=== PATIENT | male | born 1990 | race Hispanic/Latino ===

== ENCOUNTER 2017-10-17 06:27 | Emergency (ER) | payer BC ==
[2017-10-17 06:52] VITALS: RESP 18; TEMP 97.8; O2SAT 98
--- NOTE | 2017-10-17 07:29 | ED PDOC ---
HPI: Psych/Substance Abuse Time Seen by Provider: 10/17/17 07:00 Chief Complaint (Nursing): Alcohol Ingestion Chief Complaint (Provider): alcohol use ED Caveat: Uncooperative History Per: Patient, EMS History/Exam Limitations: intoxication Current Symptoms Are (Timing): Still Present Severity: Moderate Involuntary Hold By: Emergency Physician Additional Complaint(s): 26yo male states "passed out" on sidewalk while awaiting an Uber early this morning. No reports trauma. Denies pain or injury. Initially uncooperative but able to be redirected. Past Medical History Reviewed: Historical Data, Nursing Documentation, Vital Signs Vital Signs: Last Vital Signs Temp 97.8 F 10/17/17 06:50 Pulse 123 H 10/17/17 06:50 Resp 18 10/17/17 06:50 BP Pulse Ox 98 10/17/17 06:50 - Medical History PMH: No Chronic Diseases - Family History Family History: States: Unknown Family Hx - Living Arrangements Living Arrangements: Other - Social History Alcohol: Occasional Drugs: Denies - Allergies Allergies/Adverse Reactions: Allergies Allergy/AdvReac Type Severity Reaction Status Date / Time Penicillins Allergy ANAPHYLAXIS Verified 10/17/17 06:53 Review of Systems Eyes: Negative for: Vision Change Cardiovascular: Negative for: Chest Pain Respiratory: Negative for: Shortness of Breath Gastrointestinal: Negative for: Abdominal Pain Musculoskeletal: Negative for: Neck Pain, Arm Pain, Back Pain, Leg Pain Neurological: Negative for: Headache Physical Exam - Reviewed Nursing Documentation Reviewed: Yes Vital Signs Reviewed: Yes - Physical Exam Appears: Positive for: Non-toxic (+AOB no gross trauma), No Acute Distress Head Exam: Positive for: ATRAUMATIC, NORMAL INSPECTION, NORMOCEPHALIC Skin: Positive for: Normal Color, Warm, DRY Eye Exam: Positive for: EOMI, Normal appearance, PERRL ENT: Positive for: Other (mildly dry mucous membranes). Negative for: Pharyngeal Erythema, Tonsillar Exudate Neck: Positive for: Normal, Painless ROM Cardiovascular/Chest: Negative for: Irregularly Irregular Respiratory: Negative for: Respiratory Distress Gastrointestinal/Abdominal: Positive for: Normal Exam, Soft Back: Positive for: Normal Inspection. Negative for: Vertebral Tenderness Extremity: Positive for: Normal ROM. Negative for: Tenderness, Deformity Neurologic/Psych: Positive for: Alert, Oriented, Mood/Affect (mildly intoxicated appearing w pressured speech, uncooperative but able to be redirected). Negative for: Motor/Sensory Deficits - ECG O2 Sat by Pulse Oximetry: 98 Medical Decision Making Medical Decision Making: pt called father, states coming from [place] to accompany home for safety, otherwise will remain in ED until clinically sober. Gait slightly unsteady and pressured speech 720am 8am dad arrived from [place], will accompany home for safety. Gait has improved and patient awake/alert. Disposition - Clinical Impression Clinical Impression: Alcohol use - Patient ED Disposition Is Patient to be Admitted: No Counseled Patient/Family Regarding: Studies Performed, Diagnosis, Need For Followup - Disposition Disposition: Routine/Home Disposition Time: 07:59 Condition: STABLE Additional Instructions: Return to ER for any concern. Discharged to father for safe accompany home. Instructions: Alcohol Use - When Is Drinking a Problem? Forms: [facility] ([place])
[2017-10-17 08:19] VITALS: BP 130/72; PULSE 92
== END 2017-10-17 08:10 | disposition home or self-care (01) ==
LOC: EDBD 06:27 → H.ER 06:27
DX: F10.10 Alcohol abuse, uncomplicated (principal)